=== PATIENT | male | born 1975 | race Caucasian/White ===

== ENCOUNTER 2018-12-25 08:20 | Day surgery (SDC) | payer OTHER ==
[~2018-12-25] VITALS: Ht 165.1 cm; Wt 58.6 kg
[2018-12-25] MEDS ORDERED: BENAZEPRIL (09:35)
[2018-12-25] MEDS ORDERED: [UNRECOGNIZED DRUG - OTHER] (09:36)
[2018-12-25 09:38] VITALS: Ht 165.1 cm; Wt 58.6 kg
[2018-12-25 09:42] VITALS: BP 120/82; PULSE 77; RESP 18
[2018-12-25] MEDS ORDERED: FENTAnyl 50 MCG/ML VIAL ONE (10:28)
[2018-12-25] MEDS ORDERED: MIDAZOLAM 1 MG/ML 2 ML INJ ONE ×2 (10:28)
[2018-12-25 10:43] VITALS: BP 113/62; RESP 20
== END 2018-12-25 11:57 | disposition home or self-care (01) ==
LOC: GIL 08:20
PROVIDERS: ATTEND Internal Medicine Gastroenterology
DX: K64.1 Second degree hemorrhoids (principal); D12.5 Benign neoplasm of sigmoid colon; I10 Essential (primary) hypertension
CPT/HCPCS: 45380; 88305; J2250; J3010; Z7610

== ENCOUNTER 2019-02-20 21:11 | Emergency (ER) | payer OTHER ==
[~2019-02-20] VITALS: Ht 162.6 cm; Wt 70.0 kg
[~2019-02-20 21:11] MED LIST: BENAZEPRIL; [UNRECOGNIZED DRUG - OTHER]
[2019-02-20 21:19] VITALS: Ht 162.6 cm; Wt 70.0 kg
[2019-02-20] MEDS ORDERED: SOD CHLORIDE 0.9% 1,000 ML IV STA (21:32)
[2019-02-20] MEDS ORDERED: HYDROmorphONE 1 MG/ML SYG IV STA (21:32)
[2019-02-20] MEDS ORDERED: ONDANSETRON 4 MG INJ IV STA (21:32)
[2019-02-20] MEDS ORDERED: SOD CHLORIDE 0.9% 100 ML ONE (22:26)
[2019-02-20] MEDS ORDERED: IOHEXOL 300MG/ML 150 ML BTL ONE (22:26)
--- NOTE | 2019-02-21 00:21 | ERD ---
ER Documentation Chief Complaint Chief Complaint BIBA 39 for vomiting x2 and NOGUEIRA x 2 hours HPI This is a 43-year-old male who said that he ate a chicken sandwich while at work and then he started to feel sick a few hours later so he went home he had some nausea and vomiting but no diarrhea. The vomit was nonbilious nonbloody. He t hen developed a headache after he vomited and is continued to having some vomiting over the past several hours. No diarrhea and he is complaining of some diffuse abdominal cramps that are off and on. No fever ROS All systems reviewed and are negative except as per history of present illness. Medications Home Meds Reported Medications [Lidocaine-Hydrcr.] No Conflict Check 12/25/18 [Benazperil] No Conflict Check 12/25/18 Allergies Allergies: Coded Allergies: Penicillins (Verified Allergy, Unknown, 12/25/18) PMhx/Soc Medical and Surgical Hx: pt denies Surgical Hx History of Surgery: No Anesthesia Reaction: No Hx Neurological Disorder: No Hx Respiratory Disorders: No Hx Cardiac Disorders: Yes (HTN) Hx Psychiatric Problems: No Hx Miscellaneous Medical Probl: No Hx Alcohol Use: No Hx Substance Use: No Hx Tobacco Use: No Smoking Status: Never smoker FmHx Family History: No coronary disease Physical Exam Vitals Vital Signs Date Temp Pulse Resp B/P (MAP) Pulse Ox O2 O2 Flow FiO2 Time Delivery Rate 02/20/19 65 12 129/95 97 Room Air 23:38 (106) 02/20/19 98.2 69 16 143/98 100 21:19 (113) Physical Exam Const: Well-developed, well-nourished Head: Atraumatic, normocephalic Eyes: Normal Conjunctiva, PERRLA, EOMI, normal sclera, no nystagmus ENT: Normal External Ears, Nose and Mouth, moist mucus membranes. Neck: Full range of motion. No meningismus, no lymphadenopathy. Resp: Clear to auscultation bilaterally, no wheezing, rhonchi, rales Cardio: Regular rate and rhythm, no murmurs, S1 S2 present Abd: Soft, mild diffuse tenderness, non distended. Normal bowel sounds, no guarding or rebound, no pulsitile abdominal masses or bruits Skin: No petechiae or rashes, no ecchymosis , no maculopapular rash Back: No midline or flank tenderness Ext: No cyanosis, or edema, FROM x 4, normal inspection, neurovascularly intact x 4 Neur: Awake and alert, STR 5/5 x 4, sensation intact x 4, no focal findings, cerebellum intact Psych: Normal Mood and Affect Result Diagram: 02/20/19212902/20/192129 Results 24 hrs Laboratory Tests Test 02/20/19 21:30 White Blood Count 11.4 10^3/ul Red Blood Count 5.39 10^6/ul Hemoglobin 15.2 g/dl Hematocrit 45.9 % Mean Corpuscular Volume 85.2 fl Mean Corpuscular Hemoglobin 28.2 pg Mean Corpuscular Hemoglobin Concent 33.1 g/dl Red Cell Distribution Width 11.9 % Platelet Count 283 10^3/UL Mean Platelet Volume 9.4 fl Immature Granulocytes % 0.200 % Neutrophils % 50.5 % Lymphocytes % 29.1 % Monocytes % 5.5 % Eosinophils % 14.2 % Basophils % 0.5 % Nucleated Red Blood Cells % 0.0 /100WBC Immature Granulocytes # 0.020 10^3/ul Neutrophils # 5.8 10^3/ul Lymphocytes # 3.3 10^3/ul Monocytes # 0.6 10^3/ul Eosinophils # 1.6 10^3/ul Basophils # 0.1 10^3/ul Nucleated Red Blood Cells # 0.0 10^3/ul Sodium Level 141 mmol/L Potassium Level 3.9 mmol/L Chloride Level 101 mmol/L Carbon Dioxide Level 29 mmol/L Anion Gap 11 Blood Urea Nitrogen 12 mg/dl Creatinine 0.90 mg/dl Est Glomerular Filtrat Rate mL/min > 60 mL/min Glucose Level 105 mg/dl Calcium Level 9.7 mg/dl Total Bilirubin 0.4 mg/dl Direct Bilirubin 0.00 mg/dl Indirect Bilirubin 0.4 mg/dl Aspartate Amino Transf (AST/SGOT) 41 IU/L Alanine Aminotransferase (ALT/SGPT) 45 IU/L Alkaline Phosphatase 62 IU/L Total Protein 8.2 g/dl Albumin 4.8 g/dl Globulin 3.40 g/dl Albumin/Globulin Ratio 1.41 Lipase 60 U/L Current Medications Medications Dose Sig/Vijaya Start Time Status Last (Trade) Ordered Route PRN Stop Time Admin Dose Reason Admin Sodium 1,000 ml @ Q1H STAT 02/20/19 DC 02/20/19 Chloride 1,000 mls/hr IV 21:32 02/20/19 21:39 22:31 1 mg ONCE STAT 02/20/19 DC 02/20/19 Hydromorphone IV 21:32 02/20/19 21:38 HCl 21:34 (Dilaudid) Ondansetron 4 mg ONCE STAT 02/20/19 DC 02/20/19 HCl (Zofran IV 21:32 02/20/19 21:38 Inj) 21:34 IV Flush 10 ml STK-MED 02/20/19 DC (NS 10 ml) ONCE .ROUTE 22:02/20/19 22:27 Sodium 100 ml @ ud STK-MED 02/20/19 DC Chloride ONCE .ROUTE 22:02/20/19 22:27 Iohexol 150 ml STK-MED 02/20/19 DC (Omnipaque ONCE .ROUTE 22:02/20/19 300mg/ ml) 22:27 Procedures/[place] [address] Radiology Main Line: [phone] DIAGNOSTIC IMAGING REPORT Patient: NOAN TOMAS : 1975 Age: 43 Sex: M MR #: [id number] DOS: 02/20/192131 Ordering MD: GAVINO SAMUEL DO Location: E/R Room/Bed: PROCEDURE: CT Brain without contrast. CLINICAL INDICATION: Headache. TECHNIQUE: A CT of the brain was performed utilizing axial imaging from the skull base through the vertex without IV contrast. Multiplanar reformatted images were made. Images were reviewed on a PACS workstation. The CTDIvol is 39.34 mGy and the DLP is 634.23 mGycm. DICOM images are available. One or more of the following dose reduction techniques were utilized: 1.) Automated exposure control 2.) Adjustment of the mA +/- kV according to patient's size 3.) Use of iterative reconstruction technique. COMPARISON: None FINDINGS: There is no intracranial hemorrhage, mass effect, or midline shift. No extra- axial fluid collection is seen. The ventricles and sulci are normal in size and configuration. The density of the brain is normal, and the serna white matter differentiation appears well-preserved. Mucosal thickening seen throughout the partially visualized ethmoid air cells. The maxillary sinuses are not well seen. Otherwise, the visualized paranasal sinuses and osseous structures are grossly unremarkable. IMPRESSION: 1. Mucosal thickening seen throughout the partially visualized ethmoid air cells. 2. Otherwise, there is no evident acute process in the head. RPTAT: [facility] Physician Tanvir Date Time Electronically viewed and signed by Dakota Trujillo Physician on 02/20/2019 23:47 RS/ CC: GAVINO SAMUEL DO [id number] [place] [id number] Radiology Main Line: [phone] DIAGNOSTIC IMAGING REPORT Patient: NONA TOMAS : 1975 Age: 43 Sex: M MR #: [id number] DOS: 02/20/192 Ordering MD: GAVINO SAMUEL DO Location: E/R Room/Bed: PROCEDURE: CT Abdomen and Pelvis with contrast. CLINICAL INDICATION: Abdominal pain. TECHNIQUE: CT scan of the abdomen and pelvis with contrast was performed on a multi-detector high-resolution CT scanner. The patient was scanned following the uncomplicated intravenous administration of 100 cc of Omnipaque 300. Coronal and sagittal reformatted images were obtained from the axial source images. Images were reviewed on a high-resolution PACS workstation. The total exam CTDI equals 5.40 mGy and the total exam DLP equals 327.65 mGy-cm. DICOM images are available. One or more of the following dose reduction techniques were utilized: 1.) Automated exposure control 2.) Adjustment of the mA +/- kV according to patient's size 3.) Use of iterative reconstruction technique. COMPARISON: None. FINDINGS: CT abdomen: The lung bases are clear. The heart size is normal, without pericardial thickening or effusion. The liver is normal in size and density without focal mass or intrahepatic biliary dilatation. The spleen is normal in size and homogeneous in density. The stomach is partially collapsed, but is grossly unremarkable. The pancreas as visualized is normal. The gallbladder and biliary tree are unremarkable and there is no evidence for biliary dilatation. The adrenal glands are symmetric and normal. The kidneys are symmetrically unremarkable as well. No renal calculus or obstructive uropathy or mass lesion is seen. The aorta is of normal caliber. No abdominal aortic vascular calcifications are present. Calcifications seen at the origin of the superior mesenteric artery. There is no retroperitoneal lymphadenopathy. The mary hepatis region is clear. Mild air and solid stool seen in the nondilated abdominal small bowel compatible with mild small bowel ileus. Otherwise, the Undo bowel and mesentery, as visualized, are unremarkable. CT pelvis: Mild small bowel ileus. The pelvic organs are normal. The pelvic sidewalls and inguinal regions are clear. The sigmoid colon and rectum are remarkable for sigmoid diverticulosis. No mass or adenopathy is seen. No free fluid is identified. No acute inflammation is seen. The bladder is normal. The appendix is unremarkable. The surrounding osseous structures are remarkable for remote bilateral L5 pars interarticularis is defects. The L5-S1 disc appears preserved. No osteolytic or osteoblastic lesion is detected. IMPRESSION: 1. Mild small bowel ileus. 2. 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 3. The appendix is unremarkable. 4. Otherwise, no evident acute process in the abdomen or pelvis. RPTAT: [facility] Physician Tanvir Date Time Electronically viewed and signed by Physician Tanvir on 02/21/2019 00:19 RS/ CC: GAVINO SAMUEL DO [id number] Patient has no bowel obstruction but does have a mild mid bowel ileus. He did receive some IV fluids and pain medication. Will discharge home on some pain meds and Zofran. Blood work is stable Departure Diagnosis: Primary Impression: Abdominal pain Abdominal location: generalized Qualified Codes: R10.84 - Generalized abdominal pain Additional Impression: Ileus Condition: Stable GAVINO SAMUEL DO Feb 21, 2019 00:21
[2019-02-21] MEDS ORDERED: ONDA4TAB14 PO (00:25)
[2019-02-21] MEDS ORDERED: HYDR-4011 PO (00:25)
[2019-02-21] MEDS ORDERED: DICY10CA40 PO (00:25)
[2019-02-21 01:38] VITALS: BP 128/88; PULSE 82; RESP 16
== END 2019-02-21 01:39 | disposition home or self-care (01) ==
LOC: E/R 21:11
DX: K56.7 Ileus, unspecified (principal); I10 Essential (primary) hypertension
CPT/HCPCS: 36415; 70450; 74177; 80053; 83690; 85025; 96374; 96375; J1170; J2405; J7030; Q9967; Z7502; Z7610

== ENCOUNTER 2019-05-18 08:12 | Emergency (ER) | payer OTHER ==
[~2019-05-18] VITALS: Ht 170.2 cm; Wt 60.0 kg
[~2019-05-18 08:12] MED LIST changes: +CLOT30CR24 TOP; +DICY10CA40 PO; +DOCU-144 PO; +FLUC150T PO; +HYDR-4011 PO; +ONDA4TAB14 PO
[2019-05-18 08:15] VITALS: BP 141/91; PULSE 87; RESP 20; Ht 170.2 cm; Wt 60.0 kg
== END 2019-05-18 09:01 | disposition home or self-care (01) ==
LOC: FTE 08:12
DX: B35.6 Tinea cruris (principal); I10 Essential (primary) hypertension
CPT/HCPCS: 99283